=== PATIENT | female | born 1965 | race Two or more races ===

== ENCOUNTER 2019-05-12 10:09 | Emergency (ER) | payer MEDICAID ==
[~2019-05-12] VITALS: Ht 160 cm; Wt 72.6 kg
[2019-05-12] MEDS ORDERED: ALBU6.7H IH (10:17)
[2019-05-12] MEDS ORDERED: BECL10.6 IH (10:17)
--- NOTE | 2019-05-12 10:18 | NUR ---
Pt c/o dyspnea since last night, states it feels like her asthma, c/o some light pressure in chest, LS = and clear. Pt also c/o [place], occipital area. Pt denies dizziness, n/v, no other complaints, no distress noted.
[2019-05-12] MEDS ORDERED: ALBUTEROL SULFATE 2.5 MG/3 ML NEBU NEB ONE (10:30)
[2019-05-12] MEDS ORDERED: ALBUTEROL SULFATE 2.5 MG/3 ML NEBU ONE (10:33)
[2019-05-12 10:36] LABS: BASOPHILS # (AUTO) 0.1 K/uL (0.0-8.0); BASOPHILS % (AUTO) 0.8 % (0.0-2.0); EOSINOPHILS # (AUTO) 0.4 K/uL (0.0-0.7); EOSINOPHILS % (AUTO) 5.1 % (0.0-7.0); HEMATOCRIT 40.4 % (31.2-41.9); HEMOGLOBIN 13.7 g/dL (10.9-14.3); LYMPHOCYTES # (AUTO) 1.8 K/uL (20.0-40.0); LYMPHOCYTES % (AUTO) 24.6 % (20.5-51.5); MEAN CORPUSCULAR HGB CONC 34 g/dL (32.3-35.6); MEAN CORPUSCULAR VOLUME 91.3 fL (75.5-95.3); MONOCYTES # (AUTO) 0.6 K/uL (2.0-10.0); MONOCYTES % (AUTO) 7.9 % (0.0-11.0); NEUTROPHILS # (AUTO) 4.5 K/uL (1.8-8.9); NEUTROPHILS % (AUTO) 61.6 % (38.5-71.5); PLATELET COUNT (AUTO) 218 K/uL (179-408); RED BLOOD CELL COUNT(AUTO) 4.43 MIL/uL (3.63-4.92); WHITE BLOOD COUNT (AUTO) 7.4 K/uL (3.8-11.8)
[2019-05-12 10:41] LABS: CREATININE 0.5 mg/dL (0.6-1.3); POTASSIUM 3.7 mmol/L (3.5-5.1)
--- NOTE | 2019-05-12 11:07 | NUR ---
Gave pt RX and d/c instructions, pt verbalized understanding.
== END 2019-05-12 11:09 | disposition home or self-care (01) ==
LOC: ER 10:09
DX: R05 Cough (principal); R06.02 Shortness of breath; R07.9 Chest pain, unspecified; J45.909 Unspecified asthma, uncomplicated; Z79.899 Other long term (current) drug therapy
CPT/HCPCS: 36415; 70030-TC; 71045; 85025; 93005; A4663

== ENCOUNTER 2019-06-17 20:54 | Emergency (ER) | payer MEDICAID ==
[~2019-06-17] VITALS: Ht 162.6 cm; Wt 71.7 kg
[~2019-06-17 20:54] MED LIST: ALBU6.7H9 IH; BECL10.6 IH
[2019-06-17] MEDS ORDERED: LOPERAMIDE HCL 2 MG CAPSULE ONE (21:28)
[2019-06-17] MEDS ORDERED: ONDANSETRON 4 MG/2 ML VIAL ONE (21:28)
--- NOTE | 2019-06-17 21:30 | NUR ---
MD AT BEDSIDE FOR HX AND PHYSICAL PT ABLE TO AMBULATE TOWARDS BATHROOM, ABLE TO PROVIDE STOOL SAMPLE NOTED STOOL IS WATERY/RUNNY, BROWN, NO MELENA NO BRIGHT RED BLOOD ON STOOLS PT ABLE TO SPEAK CLEAR AND COMPLETE SENTCENCES C/O NVD SINCE 06/14/19 VOMITING STOPPED YESTERDAY STILL WITH DIARRHEA AND NAUSEA AFTER EATING CHICKEN SOUP YESTERDAY +HYPERACTIVE BOWEL SOUNDS ON LQ DENIES HEADACHES/CHILLS/FEVER SIDERAILS X2 UP BED AT LOWEST POSITION KEPT WARM DRY AND COMFORTABLE
[2019-06-17] MEDS: IV NORMAL SALINE 1000 ML BAG IV ONE (21:37)
[2019-06-17] MEDS: ONDANSETRON 4 MG/2 ML VIAL IV ONE (21:38)
[2019-06-17] MEDS: LOPERAMIDE HCL 2 MG CAPSULE PO ONE (21:38)
[2019-06-17 21:41] LABS: HEMATOCRIT 41.5 % (37-47); HEMOGLOBIN 14.1 G/DL (12.0-16.0); RED BLOOD CELL COUNT(AUTO) 4.53 MIL/UL (4.2-5.4); WHITE BLOOD COUNT (AUTO) 6.6 K/UL (4.0-11.2)
[2019-06-17 21:42] LABS: BASOPHILS % (AUTO) 0.7 % (0.0-2.0); EOSINOPHILS # (AUTO) 0.2 K/uL (0.0-0.7); EOSINOPHILS % (AUTO) 3.3 % (0.0-7.0); LYMPHOCYTES # (AUTO) 1.3 K/UL (0.8-4.8); LYMPHOCYTES % (AUTO) 19.1 % (20.5-51.5); MEAN CORPUSCULAR HEMOGLOBIN 31.2 UUG (27.0-31.0); MEAN CORPUSCULAR HGB CONC 34 g/dL (32.0-37.0); MEAN CORPUSCULAR VOLUME 91.7 FL (81.0-99.0); MONOCYTES # (AUTO) 0.7 K/UL (0.1-1.30); MONOCYTES % (AUTO) 10.4 % (0.0-11.0); NEUTROPHILS # (AUTO) 4.4 K/UL (1.8-8.9); NEUTROPHILS % (AUTO) 66.5 % (38.5-71.5); PLATELET COUNT (AUTO) 212 K/UL (150-450)
--- NOTE | 2019-06-17 21:59 | NUR ---
PT ASLEEP, BUT EASILY ROUSED NAD SEMIFOWLER'S MONITORED ACCORDINGLY KEPT WARM DRY AND COMFORTABLE
[2019-06-17 22:08] LABS: CREATININE 0.6 mg/dL (0.6-1.3)
[2019-06-17 22:09] LABS: BILIRUBIN,DIRECT 0.1 mg/dL (0.0-0.2); BILIRUBIN,TOTAL 0.6 mg/dL (0.1-1.0); TOTAL PROTEIN, SERUM 7.2 g/dL (6.4-8.2)
[2019-06-17] MEDS ORDERED: POTASSIUM BICARBONATE/CIT AC 25 MEQ TABLET.EFF ONE (22:29)
[2019-06-17] MEDS: POTASSIUM BICARBONATE/CIT AC 25 MEQ TABLET.EFF PO ONE (22:29)
--- NOTE | 2019-06-17 22:45 | NUR ---
MD AT BEDSIDE FOR UPDATE
--- NOTE | 2019-06-17 22:50 | NUR ---
DC IV SALINE LOCK, DRESSED
--- NOTE | 2019-06-17 22:51 | NUR ---
Patient discharged to home in stable conditon. Written and verbal after care instructions given. Patient verbalizes understanding of instructions. AMBULATORY W/ STABLE GAIT ALL BELONGINGS W/ PT WILL BE PICKED UP BY DAUGHTER
[2019-06-17 22:52] VITALS: BP 105/69
== END 2019-06-17 22:53 | disposition home or self-care (01) ==
LOC: ER 20:54
DX: R19.7 Diarrhea, unspecified (principal); R11.10 Vomiting, unspecified; R51 Headache; J45.909 Unspecified asthma, uncomplicated; Z79.899 Other long term (current) drug therapy
CPT/HCPCS: 36415; 80048; 80076; 85025; 86625; 87015; 87046; 87427; 87899; 89055; 96374; 99283; J2405; A4663; J7030

== ENCOUNTER 2020-07-03 10:20 | Inpatient (IN) | payer MEDICAID ==
[~2020-07-03] VITALS: Ht 147.3 cm; Wt 72.6 kg
[2020-07-03] MEDS ORDERED: IV NORMAL SALINE 1000 ML BAG IV ONE (10:45)
[2020-07-03 11:05] LABS: BASOPHILS % (AUTO) 0.5 % (0.0-2.0); EOSINOPHILS # (AUTO) 0.1 K/uL (0.0-0.7); EOSINOPHILS % (AUTO) 1.4 % (0.0-7.0); HEMATOCRIT 40.8 % (31.2-41.9); HEMOGLOBIN 13.8 g/dL (10.9-14.3); LYMPHOCYTES # (AUTO) 1.3 K/uL (20.0-40.0); LYMPHOCYTES % (AUTO) 30.5 % (20.5-51.5); MEAN CORPUSCULAR HEMOGLOBIN 30.5 uug (24.7-32.8); MEAN CORPUSCULAR HGB CONC 34 g/dL (32.3-35.6); MEAN CORPUSCULAR VOLUME 89.8 fL (75.5-95.3); MONOCYTES # (AUTO) 0.4 K/uL (2.0-10.0); MONOCYTES % (AUTO) 10.5 % (0.0-11.0); NEUTROPHILS # (AUTO) 2.4 K/uL (1.8-8.9); NEUTROPHILS % (AUTO) 57.1 % (38.5-71.5); PLATELET COUNT (AUTO) 174 K/uL (179-408); RED BLOOD CELL COUNT(AUTO) 4.54 MIL/uL (3.63-4.92); WHITE BLOOD COUNT (AUTO) 4.2 K/uL (3.8-11.8)
[2020-07-03 11:30] LABS: BILIRUBIN,DIRECT 0.2 mg/dL (0.0-0.2); BILIRUBIN,TOTAL 0.7 mg/dL (0.2-1.0); CREATININE 0.7 mg/dL (0.6-1.3); POTASSIUM 3.6 mmol/L (3.5-5.1); TOTAL PROTEIN, SERUM 7.5 g/dL (6.4-8.2)
[2020-07-03 13:22] LABS: *BILIRUBIN,URIN NEGATIVE (NEGATIVE); *BLOOD, URINE NEGATIVE (NEGATIVE); *CLARITY,URINE CLEAR (CLEAR); *COLOR,URINE YELLOW (YELLOW); *KETONES,URINE NEGATIVE (NEGATIVE); *UROBILINOGEN,URINE 0.2 E.U./dl (NORMAL); LEUKOCYTE ESTERASE ,URINE NEGATIVE (NEGATIVE); NITRITE, URINE NEGATIVE (NEGATIVE); UGLUCOSE NEGATIVE (NEGATIVE)
[2020-07-03] MEDS ORDERED: ASPIRIN 325 MG TABLET ONE (14:37)
[2020-07-03] MEDS ORDERED: ASPIRIN 325 MG TABLET PO ONE (14:45)
[2020-07-03] MEDS ORDERED: ACETAMINOPHEN 325 MG TABLET PO PRN (17:00)
[2020-07-03] MEDS ORDERED: MAGNESIUM HYDROXIDE 30 ML LIQUID UDC PO PRN (17:00)
[2020-07-03] MEDS ORDERED: Z GUARD REMEDY PASTE 57 GM TUBE TOP PRN (17:00)
[2020-07-03] MEDS ORDERED: HYDROCODONE/APAP 5-325MG TABLET PO PRN (17:00)
[2020-07-03] MEDS ORDERED: ONDANSETRON 4 MG/2 ML VIAL IV PRN (17:00)
--- NOTE | 2020-07-03 17:00 | NUR ---
DR Blackwell into eval patient.
--- NOTE | 2020-07-03 18:50 | NUR ---
Transfered to 3rd floor Tele via wheelchair.
[2020-07-03 20:03] VITALS: BP 122/62
--- NOTE | 2020-07-03 20:21 | NUR ---
Received patient in bed.AALOx4 .D/x of chest pain and R/O ACS.On Tele SR .On Ra. No s/s of distress noted.Denies chest pain.Patient ambulates to bathroom.Voided well.Iv on right AC 20 g patent and intact.No s/s of infiltration.Call light with in reach.VSS.
[2020-07-04 00:03] VITALS: BP 110/56
[2020-07-04 04:10] VITALS: BP 129/78
[2020-07-04] MEDS ORDERED: ALBUTEROL SULFATE 8 GM HFA.AER.AD IH PRN (04:15)
[2020-07-04] MEDS ORDERED: PANTOPRAZOLE SODIUM 40 MG TABLET.DR PO SCH (07:00)
--- NOTE | 2020-07-04 07:05 | NUR ---
Patient slept well.Denies Chest pain through out the shift.VSS.All needs anticipated and met accordingly.
--- NOTE | 2020-07-04 07:45 | NUR ---
RECEIVED PT IN BED AWAKE, AOX4, DENIES CHEST PAIN OR SOB AT THIS TIME. . ISOLATION PRECAUTIONS IN PLACE. ALL NEEDS MET AT THIS TIME. SAFETY PRECAUTIONS IN PLACE. CALL LIGHT IN REACH. BED IN LOW AND LOCKED POSITION. WILL CONTINUE TO MONITOR.
[2020-07-04] MEDS ORDERED: PANTOPRAZOLE SODIUM 40 MG VIAL IV SCH (09:00)
[2020-07-04] MEDS ORDERED: ASPIRIN 81 MG TAB.CHEW PO SCH (09:00)
[2020-07-04 10:30] LABS: BASOPHILS % (AUTO) 0.4 % (0.0-2.0); EOSINOPHILS # (AUTO) 0.1 K/uL (0.0-0.7); EOSINOPHILS % (AUTO) 2.6 % (0.0-7.0); HEMATOCRIT 38.4 % (31.2-41.9); HEMOGLOBIN 13.3 g/dL (10.9-14.3); LYMPHOCYTES # (AUTO) 1.6 K/uL (20.0-40.0); MEAN CORPUSCULAR HEMOGLOBIN 30.9 uug (24.7-32.8); MEAN CORPUSCULAR HGB CONC 35 g/dL (32.3-35.6); MEAN CORPUSCULAR VOLUME 89.5 fL (75.5-95.3); MONOCYTES # (AUTO) 0.3 K/uL (2.0-10.0); MONOCYTES % (AUTO) 7.4 % (0.0-11.0); NEUTROPHILS # (AUTO) 2.5 K/uL (1.8-8.9); NEUTROPHILS % (AUTO) 54.6 % (38.5-71.5); PLATELET COUNT (AUTO) 165 K/uL (179-408); WHITE BLOOD COUNT (AUTO) 4.5 K/uL (3.8-11.8)
[2020-07-04 10:31] LABS: THYROID STIMULATING HORMONE 1.083 mIU/mL (0.358-3.740)
[2020-07-04 10:33] LABS: CREATININE 0.5 mg/dL (0.6-1.3); MAGNESIUM 2.3 mg/dL (1.8-2.4); PHOSPHOROUS 3.5 mg/dL (2.5-4.9); POTASSIUM 3.6 mmol/L (3.5-5.1)
[2020-07-04 12:00] VITALS: BP 127/62
[2020-07-04 15:51] VITALS: BP 111/61
--- NOTE | 2020-07-04 18:20 | NUR ---
patient discharged to home, self care. discharge instructions given and went over with patient. iv discharged, arm band taken off. all belongings left with patient. patient left in stable condition. given n95 mask due to covid + test. patient told to continue with isolation at home and to follow up with PCP as recomended.
[2020-07-04] MEDS ORDERED: ATORVASTATIN 20 MG TABLET PO SCH (21:00)
== END 2020-07-04 10:25 | disposition home or self-care (01) | DRG 137 ==
LOC: ER 10:20 → TELE3 18:24
PROVIDERS: ADMIT Student in an Organized Health Care Education/Training Program; ATTEND Student in an Organized Health Care Education/Training Program
DX: U07.1 COVID-19 (principal); J45.909 Unspecified asthma, uncomplicated; E66.9 Obesity, unspecified; E78.5 Hyperlipidemia, unspecified; R73.03 Prediabetes; Z68.33 Body mass index [BMI] 33.0-33.9, adult; R07.89 Other chest pain
CPT/HCPCS: 36415; 70030-TC; 71045; 83605; 83735; 84100; 84443; 85025; 85730; 87040; 87086; 93005; A4663; G0378; J3535; J7030; U0003

== ENCOUNTER 2022-10-29 10:22 | Emergency (ER) | payer MEDICAID ==
[~2022-10-29] VITALS: Ht 167.6 cm; Wt 77.1 kg
--- NOTE | 2022-10-29 10:44 | NUR ---
Dr. Nuñez at bedside for evaluation.
[2022-10-29] MEDS ORDERED: LOVA40TA2 PO (10:51)
[2022-10-29] MEDS ORDERED: MULT-1168 PO (10:51)
[2022-10-29] MEDS ORDERED: FISH OIL (10:51)
[2022-10-29] MEDS ORDERED: LORA10CA PO (10:51)
[2022-10-29] MEDS ORDERED: BIOTIN (10:51)
[2022-10-29] MEDS ORDERED: CHOL2000 PO (10:51)
[2022-10-29] MEDS ORDERED: METF-442 PO (10:51)
[2022-10-29 11:16] LABS: HEMATOCRIT 40.6 % (31.2-41.9); MEAN CORPUSCULAR HEMOGLOBIN 30.9 uug (24.7-32.8); MEAN CORPUSCULAR VOLUME 90.8 fL (75.5-95.3); PLATELET COUNT (AUTO) 227 K/uL (179-408)
[2022-10-29 11:37] LABS: ALANINE AMINOTRANSFERASE 36 U/L (14-59); ALKALINE PHOSPHATASE 75 U/L (50-136); ASPARTATE AMINOTRANSFERASE 18 U/L (15-37); BILIRUBIN,TOTAL 0.5 mg/dL (0.2-1.0); CARBON DIOXIDE 27 mmol/L (21-32); CHLORIDE 106 mmol/L (98-107); CREATININE 0.6 mg/dL (0.6-1.3); GLUCOSE 88 mg/dL (74-106); POTASSIUM 4.1 mmol/L (3.5-5.1); TOTAL PROTEIN, SERUM 7.2 g/dL (6.4-8.2); UREA NITROGEN, BLOOD 14 mg/dL (7-18)
--- NOTE | 2022-10-29 15:15 | NUR ---
Patient discharged to home in stable condition. Written and verbal after care instructions given. Patient verbalizes understanding of instructions. Advised to rest extremity as much as possible. Stressed follow up or return to ER for worsening s/s.
[2022-10-29 15:51] VITALS: BP 124/72
== END 2022-10-29 15:15 | disposition home or self-care (01) ==
LOC: ER 10:22
DX: M25.571 Pain in right ankle and joints of right foot (principal); J45.909 Unspecified asthma, uncomplicated; Z79.899 Other long term (current) drug therapy
CPT/HCPCS: 36415; 73610; 85025; 85651; 86140; A4663